=== PATIENT | female | born 1975 | race Caucasian/White ===

== ENCOUNTER 2018-11-05 14:44 | Emergency (ER) | payer SELFPAY ==
[~2018-11-05] VITALS: Ht 160 cm; Wt 63.9 kg
[~2018-11-05 14:44] MED LIST: FLUT9.9S NASAL; LORA10TA3 PO
[2018-11-05 15:08] VITALS: BP 126/65; PULSE 85; RESP 20; Ht 160 cm; Wt 63.9 kg
--- NOTE | 2018-11-05 20:55 | ERD ---
ER Documentation Chief Complaint Chief Complaint pt c/o stuffy/running nose with cough and mild SOB HPI 43yo female with history of knee arthritis and asthma presents for cough and runny nose x1 month. Cough noted to be dry. Fevers or chills. Denies chest pain or shortness of breath. Denies abdominal pain, nausea, vomiting. She did have flulike symptoms about a month ago, other symptoms have mostly resolved however the cough continues. No other modifying factors noted, no treatment tried at home. ROS All systems reviewed and are negative except as per history of present illness. Medications Home Meds Active Scripts Loratadine* (Loratadine*) 10 Mg Tablet, 10 MG PO DAILY PRN for runny nose/itchiness, #30 TAB Prov:CIARRA STINSON DO 11/05/18 Fluticasone Propionate (Flonase Allergy Relief) 9.9 Ml [place].susp, 1 SPRAY NASAL DAILY PRN for runny nose for 14 Days, #1 BOTTLE TO EACH NOSTRIL Prov:CIARRA STINSON DO 11/05/18 Allergies Allergies: Coded Allergies: No Known Allergy (Unverified , 11/05/18) PMhx/Soc Knee arthritis, asthma History of Surgery: Yes ( x3) Hx Alcohol Use: No Hx Substance Use: No Hx Tobacco Use: No FmHx Family History: No coronary disease Physical Exam Vitals Vital Signs Date Temp Pulse Resp B/P (MAP) Pulse Ox O2 O2 Flow FiO2 Time Delivery Rate 11/05/18 98.4 85 20 126/65 100 15:08 (85) Physical Exam Const: No acute distress Head: Atraumatic Eyes: Normal Conjunctiva ENT: Normal External Ears, bilateral tympanic membrane intact without erythema or bulging noted, nose and Mouth examination normal, no tonsillar swelling or exudate noted Neck: Full range of motion. No meningismus. Resp: Clear to auscultation bilaterally, no wheezing, rales, rhonchi Cardio: Regular rate and rhythm, no murmurs Skin: No petechiae or rashes Ext: No cyanosis, or edema Neur: Awake and alert Psych: Normal Mood and Affect Procedures/MDM Medical Decision Making: Differential diagnosis includes but not limited to upper respiratory infection, pneumonia, sepsis, meningitis, influenza, allergic rhinitis. Patient appeared well on physical examination, nontoxic appearing. Lungs were clear to auscultation bilaterally. There is low suspicion for pneumonia, sepsis, meningitis. Patient likely has allergic rhinitis. Therefore antibiotics not indicated. Discussed symptomatic treatment with patient's parent who agrees with plan. Patient given prescription for supportive medication(s). Patient advised to follow up with PCP in 1-2 days. Patient advised to return to ED for new or worsening symptoms. Patient stable on discharge from the ED. Disclaimer: Inadvertent spelling and grammatical errors are likely due to EHR/dictation software use and do not reflect on the overall quality of patient care. Also, please note that the electronic time recorded on this note does not necessarily reflect the actual time of the patient encounter. Departure Diagnosis: Primary Impression: Runny nose Condition: Fair Patient Instructions: Allergic Rhinitis Referrals: [facility] YOU HAVE RECEIVED A MEDICAL SCREENING EXAM AND THE RESULTS INDICATE THAT YOU DO NOT HAVE A CONDITION THAT REQUIRES URGENT TREATMENT IN THE EMERGENCY DEPARTMENT. FURTHER EVALUATION AND TREATMENT OF YOUR CONDITION CAN WAIT UNTIL YOU ARE SEEN IN YOUR DOCTORS OFFICE WITHIN THE NEXT 1-2 DAYS. IT IS YOUR RESPONSIBILITY TO MAKE AN APPOINTMENT FOR FOLOW-UP CARE. IF YOU HAVE A PRIMARY DOCTOR --you should call your primary doctor and schedule an appointment IF YOU DO NOT HAVE A PRIMARY DOCTOR YOU CAN CALL OUR PHYSICIAN REFERRAL HOTLINE AT IF YOU CAN NOT AFFORD TO SEE A PHYSICIAN YOU CAN CHOSE FROM THE FOLLOWING [facility] [address] [facility] [facility] [address] [facility] [facility] [address] [facility] [address] [facility] [facility] [facility] [address] [facility]. [facility]. [address] Additional Instructions: Llame al doctor MAANA y valente anirudh DASIA PARA DENTRO DE 1-2 WOLFF.Dgale a la secretaria que nosotros le instruimos hacer esta dasia.Avise o llame si hernandez condicin se empeora antes de la dasia. Regresa aqui si peor o no mejor. CIARRA STINSON DO Nov 05, 2018 20:55
== END 2018-11-05 17:02 | disposition home or self-care (01) ==
LOC: E/R 14:44
DX: R09.89 Other specified symptoms and signs involving the circulatory and respiratory systems (principal)
CPT/HCPCS: 99283